=== PATIENT | female | born 1965 | race African-American/Black ===

== ENCOUNTER 2021-08-30 20:16 | Observation (INO) ==
[2021-08-30] MEDS ORDERED: ONDANSETRON 4 MG/2 ML VIAL IV STA (21:40)
[2021-08-30] MEDS ORDERED: ASPIRIN 325 MG TABLET PO STA (21:40)
[2021-08-30 21:51] LABS: Basophils # 0.1 10*3/uL (0.0-0.2); Basophils % 0.9 % (0.0-0.8); Eosinophils # 0.1 10*3/uL (0.0-0.87); Eosinophils % 1.9 % (0.00-10.9); Hematocrit 48.8 VOL% (35.7-47.0); Immature Granulocytes % 0.1 %; Immature Granulocytes Absolute 0.01 #; Lymphocytes # 1.8 10*3/uL (1.4-4.0); Lymphocytes % 25.9 % (21.3-54.2); Mean Corpuscular HGB Conc 32.8 GM/DL (32-36); Mean Corpuscular Volume 98.6 FL (87-102); Mean Platelet Volume 9.9 FL (9.6-12.0); Monocytes # 0.6 10*3/uL (0.11-0.8); Monocytes % 8.6 % (1.7-12.7); Neutrophils % 62.6 % (38.7-73.9); Platelet Count 212 T/CUMM (130-400); Red Blood Count 4.95 MC/CUMM (3.8-5.5); Red Cell Distribution Width 13.2 % (9.3-17.3); White Blood Count 6.8 T/CUMM (4-12)
[2021-08-30 22:02] LABS: Albumin 4.2 G/DL (3.4-5.0); Bilirubin,Total 0.4 MG/DL (0.20-1.00); Calcium 10.1 MG/DL (8.5-10.1); Osmolality,Calculated 274.7 MOS/KG (273-304); Potassium 4.1 MMOL/L (3.5-5.1); Total Protein 7.4 G/DL (6.4-8.2)
[2021-08-30 22:25] LABS: RBC,Urine 1 /HPF (0-4); Squamous Epithelial Cell,Urine Occasional /HPF (0-10)
[2021-08-30 22:28] LABS: Bilirubin,Urine Negative (Negative); Blood, Urine Negative (Negative); Glucose,Urine (UA) Negative (Negative); Ketones,Urine Negative (Negative); Nitrite,Urine Negative (Negative); Protein,Urine Negative (Negative); Urine Appearance Clear (Clear); Urine Color Yellow (Yellow); Urine Specific Gravity <= 1.005 (1.001-1.035); Urine Urobilinogen 0.2 eU/dL (<2.0)
[2021-08-30 22:31] LABS: PT Patient Result 10.7 SECS (10.5-12.0); Partial Thromboplastin Time 22.5 SECS (23.8-32.1)
[2021-08-30 22:35] LABS: Barbiturates Screen,Urine Negative (Negative); Benzodiazepines Screen,Urine Negative (Negative); Cannabinoid Screen,Urine Negative (Negative); Opiate Screen,Urine Negative (Negative); Phencyclidine Screen,Urine Negative (Negative)
[2021-08-30] MEDS ORDERED: THIAMINE INJ 100 MG, FOLIC ACID INJ 1 MG, MAGNESIUM SULF INJ 2 GM, MULTIVITAMIN INJ 10 ... IV ONE (22:56)
[2021-08-30] MEDS ORDERED: hydrALAZINE 20 MG/1 ML VIAL IV PRN (22:57)
[2021-08-31] MEDS ORDERED: ONDANSETRON 4 MG/2 ML VIAL IV PRN (00:02)
[2021-08-31] MEDS ORDERED: ZALEPLON 5 MG CAPSULE PO PRN (00:02)
[2021-08-31] MEDS ORDERED: NICOTINE 21 MG/24 HR PATCH TRANSDERM PRN (00:02)
[2021-08-31] MEDS ORDERED: GLUCAGON 1 MG VIAL IM PRN (00:02)
[2021-08-31] MEDS ORDERED: diphenhydrAMINE CAP 25 MG CAPSULE PO PRN (00:02)
[2021-08-31] MEDS ORDERED: guaiFENesin/DM ER 600-30 MG TABLET PO PRN (00:02)
[2021-08-31] MEDS ORDERED: DEXTROSE 10% 250 ML BAG IV PRN (00:02)
[2021-08-31 06:05] LABS: Basophils # 0.1 10*3/uL (0.0-0.2); Basophils % 1.8 % (0.0-0.8); Eosinophils # 0.2 10*3/uL (0.0-0.87); Eosinophils % 3.7 % (0.00-10.9); Hematocrit 47.6 VOL% (35.7-47.0); Hemoglobin 15.6 GM/DL (12.0-16.0); Immature Granulocytes % 0.3 %; Immature Granulocytes Absolute 0.02 #; Lymphocytes % 32.6 % (21.3-54.2); Mean Corpuscular HGB Conc 32.8 GM/DL (32-36); Mean Platelet Volume 9.8 FL (9.6-12.0); Monocytes # 0.7 10*3/uL (0.11-0.8); Monocytes % 11.1 % (1.7-12.7); Neutrophils % 50.5 % (38.7-73.9); Platelet Count 200 T/CUMM (130-400); Red Blood Count 4.81 MC/CUMM (3.8-5.5); Red Cell Distribution Width 13.2 % (9.3-17.3)
[2021-08-31 06:23] LABS: Calcium 9.6 MG/DL (8.5-10.1); Osmolality,Calculated 276.5 MOS/KG (273-304); Potassium 3.8 MMOL/L (3.5-5.1)
[2021-08-31 06:25] LABS: Risk Ratio 2.69; VLDL Cholesterol 14.2 MG/DL
[2021-08-31] MEDS: PANTOPRAZOLE 40 MG TABLET PO SCH (09:47)
[2021-08-31] MEDS: ASPIRIN EC 81 MG TABLET PO SCH (09:47)
[2021-08-31] MEDS: HEPARIN 5,000 UNIT/1 ML VIAL SUBCUT SCH ×2 (09:47→21:18)
[2021-08-31] MEDS: amLODIPine 10 MG TABLET PO SCH (09:47)
[2021-08-31] MEDS ORDERED: LORazepam 1 MG TABLET PO ONE (13:04)
[2021-08-31] MEDS ORDERED: LORazepam 2 MG/1 ML VIAL IV PRN (13:51)
[2021-08-31] MEDS: MULTIVITAMIN (CENTRUM) TABLET PO SCH (15:21)
[2021-08-31] MEDS: FOLIC ACID 1 MG TABLET PO SCH (15:21)
[2021-08-31] MEDS: THIAMINE 100 MG TABLET PO SCH (15:21)
[2021-08-31] MEDS: ATORVASTATIN 40 MG TABLET PO SCH (21:17)
[2021-09-01 08:12] LABS: Basophils # 0.1 10*3/uL (0.0-0.2); Basophils % 0.6 % (0.0-0.8); Eosinophils % 0.5 % (0.00-10.9); Hemoglobin 16.7 GM/DL (12.0-16.0); Immature Granulocytes % 0.5 %; Immature Granulocytes Absolute 0.04 #; Lymphocytes # 0.8 10*3/uL (1.4-4.0); Lymphocytes % 10.5 % (21.3-54.2); Mean Corpuscular HGB Conc 32.7 GM/DL (32-36); Mean Corpuscular Volume 98.5 FL (87-102); Mean Platelet Volume 9.3 FL (9.6-12.0); Monocytes # 0.4 10*3/uL (0.11-0.8); Monocytes % 5.2 % (1.7-12.7); Neutrophils % 82.7 % (38.7-73.9); Platelet Count 203 T/CUMM (130-400); Red Blood Count 5.18 MC/CUMM (3.8-5.5); Red Cell Distribution Width 13.4 % (9.3-17.3); White Blood Count 7.9 T/CUMM (4-12)
[2021-09-01 08:33] LABS: Albumin 3.7 G/DL (3.4-5.0); Bilirubin,Total 0.5 MG/DL (0.20-1.00); Calcium 10.2 MG/DL (8.5-10.1); Osmolality,Calculated 273.8 MOS/KG (273-304); Potassium 3.8 MMOL/L (3.5-5.1); Total Protein 7.7 G/DL (6.4-8.2)
[2021-09-01] MEDS ORDERED: chlordiazePOXIDE 25 MG CAPSULE PO PRN (10:10)
[2021-09-01] MEDS: THIAMINE 100 MG TABLET PO SCH (10:30)
[2021-09-01] MEDS: amLODIPine 10 MG TABLET PO SCH (10:31)
[2021-09-01] MEDS: HEPARIN 5,000 UNIT/1 ML VIAL SUBCUT SCH ×2 (10:31→20:36)
[2021-09-01] MEDS: PANTOPRAZOLE 40 MG TABLET PO SCH (10:31)
[2021-09-01] MEDS: ASPIRIN EC 81 MG TABLET PO SCH (10:31)
[2021-09-01] MEDS: FOLIC ACID 1 MG TABLET PO SCH (10:31)
[2021-09-01] MEDS: MULTIVITAMIN (CENTRUM) TABLET PO SCH (10:31)
[2021-09-01] MEDS: ACETAMINOPHEN 325 MG TABLET PO PRN ×2 (12:06→20:40)
[2021-09-01] MEDS: carvediloL 6.25 MG TABLET PO SCH ×2 (12:07→17:08)
[2021-09-01] MEDS: DOCUSATE SODIUM 100 MG CAPSULE PO SCH (20:39)
[2021-09-01] MEDS: ATORVASTATIN 40 MG TABLET PO SCH (20:42)
[2021-09-02] MEDS: MULTIVITAMIN (CENTRUM) TABLET PO SCH (08:29)
[2021-09-02] MEDS: THIAMINE 100 MG TABLET PO SCH (08:29)
[2021-09-02] MEDS: carvediloL 6.25 MG TABLET PO SCH (08:29)
[2021-09-02] MEDS: DOCUSATE SODIUM 100 MG CAPSULE PO SCH (08:29)
[2021-09-02] MEDS: FOLIC ACID 1 MG TABLET PO SCH (08:29)
[2021-09-02] MEDS: amLODIPine 10 MG TABLET PO SCH (08:29)
[2021-09-02] MEDS: ASPIRIN EC 81 MG TABLET PO SCH (08:29)
[2021-09-02] MEDS: PANTOPRAZOLE 40 MG TABLET PO SCH (08:29)
[2021-09-02] MEDS: HEPARIN 5,000 UNIT/1 ML VIAL SUBCUT SCH (08:30)
[2021-09-02 08:49] LABS: Basophils # 0.1 10*3/uL (0.0-0.2); Basophils % 0.9 % (0.0-0.8); Eosinophils # 0.1 10*3/uL (0.0-0.87); Eosinophils % 1.8 % (0.00-10.9); Hematocrit 49.4 VOL% (35.7-47.0); Hemoglobin 15.9 GM/DL (12.0-16.0); Immature Granulocytes % 0.3 %; Immature Granulocytes Absolute 0.02 #; Lymphocytes # 1.9 10*3/uL (1.4-4.0); Lymphocytes % 23.4 % (21.3-54.2); Mean Corpuscular HGB Conc 32.2 GM/DL (32-36); Mean Platelet Volume 9.8 FL (9.6-12.0); Monocytes # 0.7 10*3/uL (0.11-0.8); Monocytes % 8.2 % (1.7-12.7); Neutrophils % 65.4 % (38.7-73.9); Platelet Count 200 T/CUMM (130-400); Red Blood Count 4.99 MC/CUMM (3.8-5.5); Red Cell Distribution Width 13.6 % (9.3-17.3)
[2021-09-02 09:07] LABS: Albumin 3.5 G/DL (3.4-5.0); Bilirubin,Total 0.6 MG/DL (0.20-1.00); Calcium 9.4 MG/DL (8.5-10.1); Osmolality,Calculated 281.4 MOS/KG (273-304); Potassium 3.9 MMOL/L (3.5-5.1); Total Protein 7.2 G/DL (6.4-8.2)
[2021-09-02 15:46] VITALS: BP 121/81
== END 2021-09-02 17:04 | disposition home or self-care (01) ==
LOC: N.ED 20:16 → N.3E 20:16 → SUATTDRO 08-31 00:02 → N.3E 08-31 01:08
PROVIDERS: ADMIT Internal Medicine; ATTEND Emergency Medicine